=== PATIENT | female | born 1965 ===

== ENCOUNTER 2024-05-27 11:30 | Inpatient (IN) | payer OTHER ==
[~2024-05-27] VITALS: Ht 162.6 cm; Wt 66.2 kg
[2024-05-27] MEDS ORDERED: BISOPROLOL-HCT1 EAC1 (14:22)
[2024-05-27] MEDS ORDERED: FAMOTIDINE 40MG (14:23)
[2024-05-27] MEDS ORDERED: ATORVASTATIN CA40 MG (14:23)
[2024-05-27] MEDS ORDERED: MONTELUKAS 10MG (14:23)
[2024-05-27] MEDS ORDERED: GABAPENTIN 200 MG (14:24)
[2024-06-04] MEDS ORDERED: CEFTRIAXONE SODIUM 2,000 MG VIAL IV ONE (08:45)
[2024-06-04] MEDS ORDERED: BUPIVACAINE HCL 30 ML VIAL IJ ONE (08:45)
[2024-06-04] MEDS ORDERED: METRONIDAZOLE/SODIUM CHLORIDE 500 MG/100 ML PIGGYBACK IV ONE (08:45)
[2024-06-04] MEDS ORDERED: LIDOCAINE HCL 1%/EPINEPHRINE 20ML VIAL IJ ONE (08:45)
[2024-06-04] MEDS ORDERED: MONTELUKAST SOD10 MG (09:08)
[2024-06-04] MEDS ORDERED: FAMOTIDINE40 MG (09:08)
[2024-06-04] MEDS ORDERED: GABAPENTIN100 M2 (09:08)
[2024-06-04] MEDS ORDERED: AMITRIPTYLINE H10 MG (09:08)
[2024-06-04] MEDS ORDERED: FAMOTIDINE/PF 20 MG/2 ML VIAL IV PUSH SCH (10:06)
[2024-06-04] MEDS ORDERED: TAMSULOSIN HCL 0.4 MG CAP PO SCH (10:07)
[2024-06-04] MEDS ORDERED: LACTOBACILLUS ACIDOPHILUS 1 CAP CAP PO SCH (10:07)
[2024-06-04] MEDS ORDERED: GABAPENTIN 300 MG CAPSULE PO SCH (10:07)
[2024-06-04] MEDS ORDERED: METRONIDAZOLE/SODIUM CHLORIDE 500 MG/100 ML PIGGYBACK IV SCH (10:08)
[2024-06-04] MEDS ORDERED: CEFAZOLIN SODIUM 1,000 MG VIAL IV SCH (10:08)
[2024-06-04] MEDS ORDERED: OxyCODONE HCL 5 MG TABLET (ROXICODONE) PO PRN (10:15)
[2024-06-04] MEDS ORDERED: RINGERS SOLUTION,LACTATED 1,000 ML IV SCH (10:15)
[2024-06-04] MEDS ORDERED: ONDANSETRON HCL 2 MG/ML VIAL IV PRN (10:15)
[2024-06-04] MEDS ORDERED: MORPHINE SULFATE 4 MG/ML CARTRIDGE IV PRN (10:15)
[2024-06-04] MEDS ORDERED: ONDANSETRON HCL 2 MG/ML VIAL IV ONE (10:55)
[2024-06-04] MEDS ORDERED: MORPHINE SULFATE 4 MG/ML VIAL IV ONE (11:25)
[2024-06-04] MEDS ORDERED: ACETAMINOPHEN 500 MG GEL..CAP PO SCH (12:00)
[2024-06-04] MEDS ORDERED: HYOSCYAMINE SULFATE 0.125 MG TAB.SUBL SL SCH (13:00)
[2024-06-04 17:28] VITALS: BP 150/66; O2SAT 100
[2024-06-04] MEDS ORDERED: LIDOCAINE 5% 1 PATCH ADH. TOP SCH (17:56)
[2024-06-04] MEDS ORDERED: PANTOPRAZOLE SODIUM 40 MG/VIAL VIAL IV PUSH ONE (18:00)
[2024-06-04] MEDS ORDERED: ENALAPRILAT DIHYDRATE 1.25 MG/ML VIAL IV PRN (22:00)
[2024-06-05 00:15] VITALS: BP 109/63; O2SAT 97
[2024-06-05 09:42] LABS: HEMATOCRIT 31.9 % (36.0-45.00); HEMOGLOBIN 10.7 g/dL (12.0-15.00); MEAN CELL VOLUME 81.1 fL (80.00-100.00); MEAN CORPUSCULAR HEMOGLOBIN 27.1 pg (27.00-32.0); MEAN CORPUSCULAR HGB CONC 33.5 g/dl (32.0-36.0); PLATELET COUNT 185 K/uL (150-450); RED BLOOD COUNT 3.93 M/uL (4.00-6.00); RED CELL DISTRIBUTION WIDTH 13.4 % (11.5-14.5)
[2024-06-05 10:09] VITALS: BP 103/56; O2SAT 100
[2024-06-05 10:26] LABS: ALBUMIN 3.2 gm/dL (3.4-5.0); CALCIUM 8.9 mg/dL (8.5-10.1); CREATININE SERUM 0.59 mg/dL (0.55-1.02); GFR 103.97; MAGNESIUM 2.1 mg/dL (1.8-2.4); POTASSIUM 3.34 mEq/L (3.5-5.1)
[2024-06-05 11:04] LABS: PHOSPHOROUS 1.9 mg/dL (2.5-4.9)
[2024-06-05] MEDS ORDERED: MORPHINE SULFATE 2 MG/ML CARTRIDGE IV PRN (12:45)
[2024-06-05] MEDS ORDERED: POTASSIUM PHOS,M-BASIC-D-BASIC 3 MM/ML VIAL IV SCH (13:00)
[2024-06-05 16:00] VITALS: BP 124/66; O2SAT 97
[2024-06-05] MEDS ORDERED: IRON FUM,PS/FOLIC/BCOMP,C NO.9 1 CAP CAPSULE PO SCH (17:00)
[2024-06-05] MEDS ORDERED: ENOXAPARIN SODIUM 40 MG/0.4 ML SYRINGE SUBCUTANEO SCH (17:00)
[2024-06-05] MEDS ORDERED: LIDOCAINE 5% 1 PATCH ADH. TOP SCH (17:00)
[2024-06-06 00:39] VITALS: BP 109/57; O2SAT 98
[2024-06-06] MEDS ORDERED: ENOXAPARIN SODIUM 40 MG/0.4 ML SYRINGE SUBCUTANEO SCH (09:00)
[2024-06-06 18:42] VITALS: BP 140/65; O2SAT 98
[2024-06-07 00:48] VITALS: BP 103/58; O2SAT 98
[2024-06-07 08:00] VITALS: BP 160/73; O2SAT 99
[2024-06-07] MEDS ORDERED: ACETAMINOPHEN500 M2 PO (10:12)
[2024-06-07] MEDS ORDERED: GABAPENTIN300 MG PO (11:04)
== END 2024-06-07 14:56 | disposition home or self-care (01) | DRG 331 ==
LOC: O/R 06-04 05:20 → SURH 06-04 10:30
PROVIDERS: ADMIT Surgery; ATTEND Surgery
PROC: 0DBP4ZZ Excision of Rectum, Percutaneous Endoscopic Approach (ICD-10-PCS; 2024-06-04)
PROC: 0DNW4ZZ Release Peritoneum, Percutaneous Endoscopic Approach (ICD-10-PCS; 2024-06-04)
PROC: 0DQ84ZZ Repair Small Intestine, Percutaneous Endoscopic Approach (ICD-10-PCS; 2024-06-04)
PROC: 0DJD8ZZ Inspection of Lower Intestinal Tract, Via Natural or Artificial Opening Endoscopic (ICD-10-PCS; 2024-06-04)
PROC: 0DTN4ZZ Resection of Sigmoid Colon, Percutaneous Endoscopic Approach (ICD-10-PCS; principal; 2024-06-04 10:30)
DX: K57.30 Diverticulosis of large intestine without perforation or abscess without bleeding (principal); N73.6 Female pelvic peritoneal adhesions (postinfective); N99.4 Postprocedural pelvic peritoneal adhesions; I10 Essential (primary) hypertension; E87.6 Hypokalemia